=== PATIENT | male | born 1945 | race African-American/Black ===

== ENCOUNTER 2020-02-21 10:30 | Inpatient (IN) | payer MEDICARE, MEDICAID ==
[~2020-02-21] VITALS: Ht 180.3 cm; Wt 117.9 kg
[~2020-02-21 10:30] MED LIST: ALBUTEROL
[2020-02-21 11:41] LABS: CHLORIDE 104 mEq/L (98-107)
[2020-02-21 11:42] LABS: HEMATOCRIT. 38.8 % (42.0-52.0); HEMOGLOBIN. 12.5 g/dL (14.0-18.0); MEAN CORPUSCULAR HEMOGLOBIN 27.3 pg (28.0-32.0); MEAN CORPUSCULAR VOLUME 85.2 fL (80.0-94.0); MEAN PLATELET VOLUME 10.2 fl (7.4-10.4); PLATELET 103 x1000/uL (130-400); RED BLOOD CELL COUNT 4.56 mill/uL (4.7-6.1); RED CELL DISTRIBUTION WIDTH 19.3 % (11.6-14.6)
[2020-02-21 11:45] LABS: PROTHROMBIN TIME 10.9 sec (9.6-11.0)
[2020-02-21 12:01] LABS: CLARITY URINE CLEAR (CLEAR); COLOR URINE YELLOW (YELLOW); KETONES URINE TRACE (NEGATIVE); LEUKOCYTE ESTERASE URINE NEGATIVE (NEGATIVE); NITRITE URINE NEGATIVE (NEGATIVE); OCCULT BLOOD URINE 2+ (NEGATIVE); PROTEIN URINE 2+ (NEGATIVE); SPECIFIC GRAVITY URINE 1.022 (1.005-1.030); UROBILINOGEN URINE 0.2 E.U./dL (0.2-1.0)
[2020-02-21 12:18] LABS: PLATELET ESTIMATE DECREASED
[2020-02-21] MEDS ORDERED: CEFTRIAXONE 1 G PREMIX 50 ML IV ONE (13:15)
[2020-02-21] MEDS ORDERED: AZITHROMYCIN 500 MG in DEXT 5% WATER 250 ML IV ONE (13:15)
[2020-02-21] MEDS ORDERED: TRAMADOL 50MG TABLET PO ONE (13:30)
[2020-02-21] MEDS ORDERED: ALBUTEROL 6.7GM HFA INHALER ORI PRN (16:00)
[2020-02-21] MEDS ORDERED: ACETAMINOPHEN 650MG/20.3ML UDC GT PRN ×2 (16:00)
[2020-02-21] MEDS ORDERED: CLONIDINE 0.1MG TABLET PO PRN (16:00)
[2020-02-21] MEDS ORDERED: HYDROCODONE/ACETAMINOPHEN 5/325MG TABLET PO PRN (16:00)
[2020-02-21] MEDS ORDERED: ACETAMINOPHEN 650MG SUPP PR PRN ×2 (16:00)
[2020-02-21] MEDS ORDERED: DOCUSATE SODIUM 100MG CAPSULE PO PRN (16:00)
[2020-02-21] MEDS ORDERED: ONDANSETRON HCL 4MG/2ML INJ IV PRN (16:00)
[2020-02-21] MEDS ORDERED: DEXTROSE 50% WATER 50ML SYRINGE IV PRN (16:00)
[2020-02-21] MEDS ORDERED: NA PHOS,M-B/NA PHOS,DI-BA ENEMA 118ML PR PRN (16:00)
[2020-02-21] MEDS ORDERED: MAGNESIUM/ALUMINUM HYDROXIDE/SIMETHICONE 30ML UDC PO PRN (16:00)
[2020-02-21] MEDS: SODIUM CHLORIDE 0.9% 1,000 ML IV SCH (16:47)
[2020-02-21] MEDS: BLOOD SUGAR DIAGNOSTIC STRIP TEST SCH ×2 (17:00→23:41)
[2020-02-21] MEDS: ENOXAPARIN 30MG/0.3ML SYR SUBCUT SCH (18:00)
[2020-02-21] MEDS: INSULIN LISPRO 100 UNITS/ML SUBCUT SCH ×2 (18:28→23:20)
[2020-02-21 23:53] LABS: CREATINE KINASE MB FRACTION 2.7 ng/mL (0.5-3.6)
[2020-02-22 04:57] LABS: CHLORIDE 106 mEq/L (98-107)
[2020-02-22 05:04] LABS: LDL CHOLESTEROL 87 mg/dL (5-100)
[2020-02-22 05:05] LABS: HDL CHOLESTEROL 73 mg/dL (40-59)
[2020-02-22 05:09] LABS: CREATINE KINASE MB FRACTION 2.9 ng/mL (0.5-3.6)
[2020-02-22 05:12] LABS: BASOPHILS % 0.2 % (0.0-2.0); EOSINOPHILS % 0.1 % (0.0-5.0); HEMATOCRIT. 40.2 % (42.0-52.0); MEAN CORPUSCULAR HEMOGLOBIN 27.4 pg (28.0-32.0); MEAN CORPUSCULAR VOLUME 84.7 fL (80.0-94.0); MEAN PLATELET VOLUME 10.7 fl (7.4-10.4); MONOCYTES % 9.4 % (2.0-8.0); NEUTROPHILS % 80.3 % (40.0-76.0); PLATELET 108 x1000/uL (130-400); RED BLOOD CELL COUNT 4.75 mill/uL (4.7-6.1); RED CELL DISTRIBUTION WIDTH 19.2 % (11.6-14.6)
[2020-02-22 05:27] LABS: CREATINE KINASE 4733 IU/L (39-308)
[2020-02-22] MEDS: ENOXAPARIN 30MG/0.3ML SYR SUBCUT SCH ×2 (06:00→18:18)
[2020-02-22] MEDS: BLOOD SUGAR DIAGNOSTIC STRIP TEST SCH ×4 (08:11→21:00)
[2020-02-22] MEDS: INSULIN LISPRO 100 UNITS/ML SUBCUT SCH ×3 (08:14→17:00)
[2020-02-22] MEDS: SODIUM CHLORIDE 0.9% 1,000 ML IV SCH (08:37)
[2020-02-22] MEDS ORDERED: AZITHROMYCIN 500 MG in DEXT 5% WATER 250 ML IV SCH (14:00)
[2020-02-22] MEDS ORDERED: CEFTRIAXONE 1 G PREMIX 50 ML IV SCH (14:00)
[2020-02-23] VITALS (7 sets, daily range): BP systolic 101–136; BP diastolic 59–75
[2020-02-23] MEDS: SODIUM CHLORIDE 0.9% 1,000 ML IV SCH ×2 (00:56→17:13)
[2020-02-23] MEDS: INSULIN LISPRO 100 UNITS/ML SUBCUT SCH ×5 (00:57→23:38)
[2020-02-23 06:11] LABS: BASOPHILS % 0.4 % (0.0-2.0); EOSINOPHILS % 0.3 % (0.0-5.0); HEMATOCRIT. 35.2 % (42.0-52.0); HEMOGLOBIN. 11.5 g/dL (14.0-18.0); LYMPHOCYTES % 11.4 % (20.0-50.0); MEAN CORPUSCULAR HEMOGLOBIN 27.5 pg (28.0-32.0); MEAN CORPUSCULAR VOLUME 84.1 fL (80.0-94.0); MEAN PLATELET VOLUME 10.4 fl (7.4-10.4); MONOCYTES % 8.9 % (2.0-8.0); PLATELET 120 x1000/uL (130-400); RED BLOOD CELL COUNT 4.18 mill/uL (4.7-6.1); RED CELL DISTRIBUTION WIDTH 19.6 % (11.6-14.6)
[2020-02-23 06:14] LABS: CHLORIDE 111 mEq/L (98-107)
[2020-02-23 06:25] LABS: PHOSPHORUS 2.6 mg/dL (2.5-4.9)
[2020-02-23] MEDS: BLOOD SUGAR DIAGNOSTIC STRIP TEST SCH ×4 (07:30→21:00)
[2020-02-23] MEDS ORDERED: DIGOXIN 500MCG/2ML AMP IV SCH (09:00)
[2020-02-23] MEDS: METOPROLOL TARTRATE 25MG TABLET PO SCH ×2 (09:14→23:36)
[2020-02-23] MEDS: CEFTRIAXONE 1,000 MG in DEXTROSE 5% WATER 50 ML IV SCH (12:53)
[2020-02-23] MEDS: ENOXAPARIN 120MG/0.8ML SYR SUBCUT SCH ×2 (13:45→23:37)
[2020-02-23] MEDS ORDERED: AZITHROMYCIN 500 MG in DEXT 5% WATER 250 ML IV SCH (14:00)
[2020-02-23 16:42] LABS: T4 FREE 1.35 ng/dL (0.76-1.46)
[2020-02-23] MEDS: ACETAMINOPHEN 325MG TABLET PO PRN ×2 (17:30→23:38)
[2020-02-24] VITALS: BP 132/76
[2020-02-24 00:37] LABS: CREATINE KINASE MB FRACTION 1.5 ng/mL (0.5-3.6)
[2020-02-24 04:00] VITALS: BP 130/74
[2020-02-24] MEDS: BLOOD SUGAR DIAGNOSTIC STRIP TEST SCH ×4 (07:29→21:43)
[2020-02-24 07:37] LABS: CREATINE KINASE MB FRACTION 1.8 ng/mL (0.5-3.6)
[2020-02-24 08:00] VITALS: BP 124/75
[2020-02-24] MEDS: ENOXAPARIN 120MG/0.8ML SYR SUBCUT SCH ×2 (08:47→21:45)
[2020-02-24] MEDS: METOPROLOL TARTRATE 25MG TABLET PO SCH ×2 (08:47→21:46)
[2020-02-24] MEDS: AZITHROMYCIN 250 MG TABLET PO SCH (08:47)
[2020-02-24] MEDS: INSULIN LISPRO 100 UNITS/ML SUBCUT SCH ×4 (08:52→21:45)
[2020-02-24] MEDS: SODIUM CHLORIDE 0.9% 1,000 ML IV SCH (10:40)
[2020-02-24 12:00] VITALS: BP 127/71
[2020-02-24] MEDS ORDERED: DIATR MEGLU/DIATRIZOATE SOLN 30ML PO SCH (12:15)
[2020-02-24] MEDS: CEFTRIAXONE 1,000 MG in DEXTROSE 5% WATER 50 ML IV SCH (13:10)
[2020-02-24 16:00] VITALS: BP 130/79
[2020-02-24 20:00] VITALS: BP 132/75
[2020-02-24 21:25] LABS: BASOPHILS % 0.3 % (0.0-2.0); HEMATOCRIT. 32.8 % (42.0-52.0); HEMOGLOBIN. 10.8 g/dL (14.0-18.0); LYMPHOCYTES % 17.6 % (20.0-50.0); MEAN CORPUSCULAR HEMOGLOBIN 27.5 pg (28.0-32.0); MEAN CORPUSCULAR VOLUME 83.8 fL (80.0-94.0); MEAN PLATELET VOLUME 9.8 fl (7.4-10.4); MONOCYTES % 10.8 % (2.0-8.0); NEUTROPHILS % 70.3 % (40.0-76.0); PLATELET 158 x1000/uL (130-400); RED BLOOD CELL COUNT 3.92 mill/uL (4.7-6.1)
[2020-02-24 21:27] LABS: CHLORIDE 102 mEq/L (98-107)
[2020-02-25] VITALS: BP 133/67
[2020-02-25 04:00] VITALS: BP 130/75
[2020-02-25] MEDS: INSULIN LISPRO 100 UNITS/ML SUBCUT SCH ×4 (07:10→21:51)
[2020-02-25] MEDS: BLOOD SUGAR DIAGNOSTIC STRIP TEST SCH ×4 (07:26→21:53)
[2020-02-25 08:00] VITALS: BP 118/69
[2020-02-25] MEDS: METOPROLOL TARTRATE 25MG TABLET PO SCH ×3 (09:27→21:53)
[2020-02-25] MEDS: ENOXAPARIN 120MG/0.8ML SYR SUBCUT SCH ×2 (09:27→21:53)
[2020-02-25] MEDS: AZITHROMYCIN 250 MG TABLET PO SCH (09:27)
[2020-02-25 12:00] VITALS: BP 112/64
[2020-02-25] MEDS: CEFTRIAXONE 1,000 MG in DEXTROSE 5% WATER 50 ML IV SCH (13:59)
[2020-02-25 16:00] VITALS: BP 140/69
[2020-02-25 20:00] VITALS: BP 97/60
[2020-02-25 21:09] LABS: BASOPHILS % 0.6 % (0.0-2.0); EOSINOPHILS % 1.2 % (0.0-5.0); HEMATOCRIT. 31.1 % (42.0-52.0); HEMOGLOBIN. 10.2 g/dL (14.0-18.0); LYMPHOCYTES % 17.5 % (20.0-50.0); MEAN CORPUSCULAR HEMOGLOBIN 27.5 pg (28.0-32.0); MEAN PLATELET VOLUME 9.8 fl (7.4-10.4); MONOCYTES % 9.1 % (2.0-8.0); NEUTROPHILS % 71.6 % (40.0-76.0); PLATELET 184 x1000/uL (130-400)
[2020-02-25 21:21] LABS: CHLORIDE 101 mEq/L (98-107)
[2020-02-25] MEDS: SODIUM CHLORIDE 0.9% 1,000 ML IV SCH (21:50)
[2020-02-25] MEDS: ACETAMINOPHEN 325MG TABLET PO PRN (21:54)
[2020-02-26] VITALS: BP 132/78
[2020-02-26 04:00] VITALS: BP 95/71
[2020-02-26] MEDS: METOPROLOL TARTRATE 25MG TABLET PO SCH ×3 (06:00→21:31)
[2020-02-26] MEDS: ACETAMINOPHEN 325MG TABLET PO PRN ×2 (06:12→14:39)
[2020-02-26] MEDS: BLOOD SUGAR DIAGNOSTIC STRIP TEST SCH ×4 (06:23→21:20)
[2020-02-26 06:53] LABS: BASOPHILS % 0.4 % (0.0-2.0); EOSINOPHILS % 1.8 % (0.0-5.0); HEMATOCRIT. 30.7 % (42.0-52.0); MEAN CORPUSCULAR HEMOGLOBIN 27.2 pg (28.0-32.0); MEAN CORPUSCULAR VOLUME 83.1 fL (80.0-94.0); MEAN PLATELET VOLUME 9.5 fl (7.4-10.4); MONOCYTES % 12.6 % (2.0-8.0); NEUTROPHILS % 67.2 % (40.0-76.0); PLATELET 202 x1000/uL (130-400); RED BLOOD CELL COUNT 3.69 mill/uL (4.7-6.1); RED CELL DISTRIBUTION WIDTH 18.8 % (11.6-14.6)
[2020-02-26 07:01] LABS: CHLORIDE 103 mEq/L (98-107)
[2020-02-26 07:07] LABS: PHOSPHORUS 2.3 mg/dL (2.5-4.9)
[2020-02-26] MEDS: INSULIN LISPRO 100 UNITS/ML SUBCUT SCH ×4 (07:10→21:26)
[2020-02-26] MEDS: ENOXAPARIN 120MG/0.8ML SYR SUBCUT SCH ×2 (09:15→21:25)
[2020-02-26 09:20] LABS: CLARITY URINE CLOUDY (CLEAR); COLOR URINE YELLOW (YELLOW); KETONES URINE NEGATIVE (NEGATIVE); LEUKOCYTE ESTERASE URINE NEGATIVE (NEGATIVE); NITRITE URINE NEGATIVE (NEGATIVE); OCCULT BLOOD URINE 1+ (NEGATIVE); PH URINE 5.5 (4.5-8.0); PROTEIN URINE 2+ (NEGATIVE); SPECIFIC GRAVITY URINE 1.017 (1.005-1.030); UROBILINOGEN URINE 0.2 E.U./dL (0.2-1.0)
[2020-02-26 12:00] VITALS: BP 136/62
[2020-02-26] MEDS: SODIUM CHLORIDE 0.9% 1,000 ML IV SCH (12:51)
[2020-02-26] MEDS: CEFTRIAXONE 1,000 MG in DEXTROSE 5% WATER 50 ML IV SCH (14:34)
[2020-02-26 16:00] VITALS: BP 137/71
[2020-02-26 20:00] VITALS: BP 134/71
[2020-02-27] VITALS: BP 133/76
[2020-02-27 04:00] VITALS: BP 139/69
[2020-02-27] MEDS: SODIUM CHLORIDE 0.9% 1,000 ML IV SCH ×2 (04:48→21:39)
[2020-02-27 06:07] LABS: EOSINOPHILS % 0.7 % (0.0-5.0); HEMOGLOBIN. 9.7 g/dL (14.0-18.0); LYMPHOCYTES % 12.4 % (20.0-50.0); MEAN CORPUSCULAR HEMOGLOBIN 27.4 pg (28.0-32.0); MEAN CORPUSCULAR VOLUME 84.7 fL (80.0-94.0); MEAN PLATELET VOLUME 9.5 fl (7.4-10.4); MONOCYTES % 10.9 % (2.0-8.0); PLATELET 244 x1000/uL (130-400); RED BLOOD CELL COUNT 3.54 mill/uL (4.7-6.1); RED CELL DISTRIBUTION WIDTH 18.1 % (11.6-14.6)
[2020-02-27 06:18] LABS: CHLORIDE 105 mEq/L (98-107)
[2020-02-27] MEDS: BLOOD SUGAR DIAGNOSTIC STRIP TEST SCH ×4 (06:26→21:34)
[2020-02-27 06:28] LABS: PHOSPHORUS 2.3 mg/dL (2.5-4.9)
[2020-02-27] MEDS: INSULIN LISPRO 100 UNITS/ML SUBCUT SCH ×5 (06:44→21:00)
[2020-02-27] MEDS: METOPROLOL TARTRATE 25MG TABLET PO SCH ×4 (06:45→21:35)
[2020-02-27 08:00] VITALS: BP 130/68
[2020-02-27] MEDS: ENOXAPARIN 120MG/0.8ML SYR SUBCUT SCH ×2 (08:12→21:38)
[2020-02-27 12:00] VITALS: BP 124/73
[2020-02-27 16:00] VITALS: BP 149/60
[2020-02-27 20:00] VITALS: BP 117/81
[2020-02-28] VITALS: BP 129/82
[2020-02-28] MEDS: ACETAMINOPHEN 325MG TABLET PO PRN ×2 (01:14→10:34)
[2020-02-28 04:00] VITALS: BP 143/68
[2020-02-28] MEDS: METOPROLOL TARTRATE 25MG TABLET PO SCH ×3 (06:02→21:57)
[2020-02-28] MEDS: BLOOD SUGAR DIAGNOSTIC STRIP TEST SCH ×4 (06:27→21:57)
[2020-02-28 07:33] LABS: BASOPHILS % 0.6 % (0.0-2.0); EOSINOPHILS % 1.4 % (0.0-5.0); HEMATOCRIT. 28.3 % (42.0-52.0); HEMOGLOBIN. 9.2 g/dL (14.0-18.0); LYMPHOCYTES % 12.4 % (20.0-50.0); MEAN CORPUSCULAR HEMOGLOBIN 27.7 pg (28.0-32.0); MEAN CORPUSCULAR VOLUME 84.5 fL (80.0-94.0); MEAN PLATELET VOLUME 8.8 fl (7.4-10.4); MONOCYTES % 10.4 % (2.0-8.0); NEUTROPHILS % 75.2 % (40.0-76.0); PLATELET 261 x1000/uL (130-400); RED BLOOD CELL COUNT 3.34 mill/uL (4.7-6.1); RED CELL DISTRIBUTION WIDTH 18.8 % (11.6-14.6)
[2020-02-28 08:00] VITALS: BP 164/81
[2020-02-28 08:10] LABS: CHLORIDE 105 mEq/L (98-107)
[2020-02-28 08:15] LABS: PHOSPHORUS 1.7 mg/dL (2.5-4.9)
[2020-02-28] MEDS: ENOXAPARIN 120MG/0.8ML SYR SUBCUT SCH ×2 (08:21→21:56)
[2020-02-28] MEDS: INSULIN LISPRO 100 UNITS/ML SUBCUT SCH ×4 (08:21→21:00)
[2020-02-28 12:00] VITALS: BP 117/64
[2020-02-28] MEDS ORDERED: POTASSIUM PHOS,M-BASIC-D-BASIC 30 MMOL in SODIUM CHLORIDE 0.9% 500 ML IV NR (14:00)
[2020-02-28 16:00] VITALS: BP 143/68
[2020-02-28 20:00] VITALS: BP 153/77
[2020-02-29] VITALS: BP 136/76
[2020-02-29] MEDS: ACETAMINOPHEN 325MG TABLET PO PRN ×3 (02:50→21:16)
[2020-02-29 04:00] VITALS: BP 122/68
[2020-02-29] MEDS: METOPROLOL TARTRATE 25MG TABLET PO SCH ×3 (05:12→21:20)
[2020-02-29] MEDS: INSULIN LISPRO 100 UNITS/ML SUBCUT SCH ×4 (06:13→21:17)
[2020-02-29] MEDS: BLOOD SUGAR DIAGNOSTIC STRIP TEST SCH ×4 (06:13→21:16)
[2020-02-29 08:00] VITALS: BP 117/69
[2020-02-29 08:19] LABS: BASOPHILS % 0.5 % (0.0-2.0); EOSINOPHILS % 1.5 % (0.0-5.0); HEMATOCRIT. 24.7 % (42.0-52.0); HEMOGLOBIN. 8.2 g/dL (14.0-18.0); LYMPHOCYTES % 11.5 % (20.0-50.0); MEAN CORPUSCULAR VOLUME 84.4 fL (80.0-94.0); MEAN PLATELET VOLUME 8.6 fl (7.4-10.4); MONOCYTES % 9.6 % (2.0-8.0); NEUTROPHILS % 76.9 % (40.0-76.0); PLATELET 277 x1000/uL (130-400); RED BLOOD CELL COUNT 2.93 mill/uL (4.7-6.1); RED CELL DISTRIBUTION WIDTH 18.4 % (11.6-14.6)
[2020-02-29 08:30] LABS: CHLORIDE 105 mEq/L (98-107)
[2020-02-29 08:38] LABS: PHOSPHORUS 1.7 mg/dL (2.5-4.9)
[2020-02-29] MEDS: FUROSEMIDE 20MG/2ML VIAL IVP SCH (08:44)
[2020-02-29] MEDS: ENOXAPARIN 120MG/0.8ML SYR SUBCUT SCH ×2 (08:44→21:17)
[2020-02-29 12:00] VITALS: BP 109/67
[2020-02-29] MEDS ORDERED: POTASSIUM PHOS,M-BASIC-D-BASIC 30 MMOL in SODIUM CHLORIDE 0.9% 500 ML IV NR (13:00)
[2020-02-29 16:00] VITALS: BP 123/64
[2020-02-29] MEDS: DEXAMETHASONE 4MG TABLET PO SCH (16:49)
[2020-02-29 20:00] VITALS: BP 135/66
[2020-02-29] MEDS: GUAIFENESIN 200MG/10ML SUGAR FREE UDC PO PRN (21:17)
[2020-03-01] VITALS: BP 127/70
[2020-03-01 04:00] VITALS: BP 132/67
[2020-03-01] MEDS: METOPROLOL TARTRATE 25MG TABLET PO SCH ×3 (05:03→22:46)
[2020-03-01] MEDS: INSULIN LISPRO 100 UNITS/ML SUBCUT SCH ×4 (06:00→22:47)
[2020-03-01] MEDS: BLOOD SUGAR DIAGNOSTIC STRIP TEST SCH ×4 (06:00→21:18)
[2020-03-01 07:50] LABS: HEMATOCRIT. 26.1 % (42.0-52.0); HEMOGLOBIN. 8.7 g/dL (14.0-18.0); MEAN CORPUSCULAR HEMOGLOBIN 28.3 pg (28.0-32.0); MEAN PLATELET VOLUME 8.9 fl (7.4-10.4); PLATELET 340 x1000/uL (130-400); RED BLOOD CELL COUNT 3.06 mill/uL (4.7-6.1); RED CELL DISTRIBUTION WIDTH 18.3 % (11.6-14.6)
[2020-03-01 08:00] VITALS: BP 128/68
[2020-03-01 08:23] LABS: CHLORIDE 105 mEq/L (98-107)
[2020-03-01 08:27] LABS: PHOSPHORUS 2.5 mg/dL (2.5-4.9)
[2020-03-01 10:10] LABS: PLATELET ESTIMATE NORMAL
[2020-03-01] MEDS: ENOXAPARIN 120MG/0.8ML SYR SUBCUT SCH ×2 (10:15→22:46)
[2020-03-01] MEDS: DEXAMETHASONE 4MG TABLET PO SCH (10:16)
[2020-03-01] MEDS: FUROSEMIDE 20MG/2ML VIAL IVP SCH (10:16)
[2020-03-01 12:00] VITALS: BP 124/71
[2020-03-01 16:00] VITALS: BP 118/69
[2020-03-01 20:00] VITALS: BP 130/71
[2020-03-02] VITALS: BP 132/64
[2020-03-02 04:00] VITALS: BP_SYST 102; BP_SYST 144; BP_DIAS 70; BP_DIAS 91
[2020-03-02] MEDS: METOPROLOL TARTRATE 25MG TABLET PO SCH ×3 (06:15→22:50)
[2020-03-02] MEDS: BLOOD SUGAR DIAGNOSTIC STRIP TEST SCH ×4 (06:15→21:00)
[2020-03-02 08:00] VITALS: BP 138/76
[2020-03-02 08:27] LABS: HEMATOCRIT. 27.4 % (42.0-52.0); HEMOGLOBIN. 8.8 g/dL (14.0-18.0); MEAN CORPUSCULAR HEMOGLOBIN 27.2 pg (28.0-32.0); MEAN PLATELET VOLUME 8.9 fl (7.4-10.4); PLATELET 418 x1000/uL (130-400); RED BLOOD CELL COUNT 3.23 mill/uL (4.7-6.1); RED CELL DISTRIBUTION WIDTH 18.1 % (11.6-14.6)
[2020-03-02] MEDS: FUROSEMIDE 20MG/2ML VIAL IVP SCH (08:53)
[2020-03-02] MEDS: ENOXAPARIN 120MG/0.8ML SYR SUBCUT SCH ×2 (08:53→22:50)
[2020-03-02] MEDS: DEXAMETHASONE 4MG TABLET PO SCH (08:53)
[2020-03-02] MEDS: INSULIN LISPRO 100 UNITS/ML SUBCUT SCH ×4 (08:54→22:52)
[2020-03-02 09:11] LABS: CHLORIDE 101 mEq/L (98-107)
[2020-03-02 09:20] LABS: PHOSPHORUS 1.9 mg/dL (2.5-4.9)
[2020-03-02 12:00] VITALS: BP 141/66
[2020-03-02 14:30] LABS: PLATELET ESTIMATE SLIGHTLY INCREASED
[2020-03-02] MEDS ORDERED: SODIUM PHOS,M-BASIC-D-BASIC 30 MM in DEXT 5% WATER 500 ML IV SCH (15:00)
[2020-03-02] MEDS: GUAIFENESIN 200MG/10ML SUGAR FREE UDC PO PRN (15:41)
[2020-03-02] MEDS: ACETAMINOPHEN 325MG TABLET PO PRN (15:41)
[2020-03-02 16:00] VITALS: BP 148/67
[2020-03-02] MEDS ORDERED: DEXTROSE 50% WATER 50ML SYRINGE IV PRN (19:00)
[2020-03-02 20:00] VITALS: BP 125/57
[2020-03-03 00:43] VITALS: BP 129/48
[2020-03-03 04:00] VITALS: BP 137/67
[2020-03-03] MEDS: METOPROLOL TARTRATE 25MG TABLET PO SCH ×3 (06:24→22:13)
[2020-03-03] MEDS: BLOOD SUGAR DIAGNOSTIC STRIP TEST SCH ×4 (06:24→22:13)
[2020-03-03 07:31] LABS: HEMATOCRIT. 27.3 % (42.0-52.0); HEMOGLOBIN. 8.7 g/dL (14.0-18.0); MEAN CORPUSCULAR HEMOGLOBIN 26.9 pg (28.0-32.0); MEAN CORPUSCULAR VOLUME 84.1 fL (80.0-94.0); PLATELET 400 x1000/uL (130-400); RED BLOOD CELL COUNT 3.24 mill/uL (4.7-6.1)
[2020-03-03 07:59] LABS: CHLORIDE 102 mEq/L (98-107)
[2020-03-03 08:00] VITALS: BP_SYST 103; BP_SYST 116; BP_DIAS 67; BP_DIAS 74
[2020-03-03 08:05] LABS: PHOSPHORUS 2.2 mg/dL (2.5-4.9)
[2020-03-03] MEDS: GUAIFENESIN 200MG/10ML SUGAR FREE UDC PO PRN (08:23)
[2020-03-03] MEDS: FUROSEMIDE 20MG/2ML VIAL IVP SCH (08:23)
[2020-03-03] MEDS: ENOXAPARIN 120MG/0.8ML SYR SUBCUT SCH ×2 (08:23→22:13)
[2020-03-03] MEDS: DEXAMETHASONE 4MG TABLET PO SCH (08:23)
[2020-03-03] MEDS: INSULIN LISPRO 100 UNITS/ML SUBCUT SCH ×4 (08:25→22:14)
[2020-03-03] MEDS: ACETAMINOPHEN 325MG TABLET PO PRN ×2 (08:26→23:21)
[2020-03-03] MEDS: INSULIN GLARGINE UD 100 UNITS/ML SYR SUBCUT SCH (10:41)
[2020-03-03 12:00] VITALS: BP 83/43
[2020-03-03 12:00] LABS: PLATELET ESTIMATE NORMAL
[2020-03-03] MEDS ORDERED: SODIUM PHOS,M-BASIC-D-BASIC 20 MM in DEXT 5% WATER 243.3333 ML IV SCH (12:00)
[2020-03-03] MEDS ORDERED: HALOPERIDOL LACTATE 5MG/ML VIAL IM NR (12:45)
[2020-03-03 13:39] LABS: BG BASE EXCESS 3.9 mmol/L (-2.0-2.0); BG CARBOXYHEMOGLOBIN 0.3 % (0.5-1.5); BG DEOXYHEMOGLOBIN 0.8 % (0.0-5.0); BG FRACTION INSPIRED OXYGEN 100; BG HCO3 ACT 27.7 mmol/L (22.0-26.0); BG METHEMOGLOBIN 0.3 % (0.0-1.5); BG OXYGEN SATURATION 99.2 % (92.0-98.5); BG OXYHEMOGLOBIN 98.6 % (94.0-97.0); BG PCO2 38.1 mmHg (35.0-45.0); BG PH 7.479 (7.350-7.450); BG PO2 170.8 mmHg (75.0-100.0); BG SAMPLE SITE LEFT RADIAL; BG TOTAL HEMOGLOBIN 8.9 g/dL (12.0-18.0); BG VENT MODE MASK - NRB
[2020-03-03 16:00] VITALS: BP 121/63
[2020-03-03 20:00] VITALS: BP 130/71
[2020-03-04] VITALS: BP 142/77
[2020-03-04 04:00] VITALS: BP 109/52
[2020-03-04] MEDS: METOPROLOL TARTRATE 25MG TABLET PO SCH ×3 (05:30→21:00)
[2020-03-04] MEDS: BLOOD SUGAR DIAGNOSTIC STRIP TEST SCH ×4 (06:07→21:00)
[2020-03-04] MEDS: INSULIN LISPRO 100 UNITS/ML SUBCUT SCH ×4 (06:10→21:02)
[2020-03-04 08:00] VITALS: BP 105/69
[2020-03-04] MEDS: DEXAMETHASONE 4MG TABLET PO SCH (08:23)
[2020-03-04] MEDS: ENOXAPARIN 120MG/0.8ML SYR SUBCUT SCH ×2 (08:23→21:00)
[2020-03-04] MEDS: FUROSEMIDE 20MG/2ML VIAL IVP SCH (08:23)
[2020-03-04 09:43] LABS: BASOPHILS % 0.6 % (0.0-2.0); EOSINOPHILS % 0.4 % (0.0-5.0); HEMATOCRIT. 30.4 % (42.0-52.0); HEMOGLOBIN. 9.8 g/dL (14.0-18.0); LYMPHOCYTES % 11.9 % (20.0-50.0); MEAN CORPUSCULAR HEMOGLOBIN 27.3 pg (28.0-32.0); MEAN CORPUSCULAR VOLUME 84.3 fL (80.0-94.0); MEAN PLATELET VOLUME 8.6 fl (7.4-10.4); NEUTROPHILS % 77.1 % (40.0-76.0); PLATELET 466 x1000/uL (130-400); RED CELL DISTRIBUTION WIDTH 18.3 % (11.6-14.6)
[2020-03-04 10:00] LABS: CHLORIDE 102 mEq/L (98-107)
[2020-03-04] MEDS: INSULIN GLARGINE UD 100 UNITS/ML SYR SUBCUT SCH (10:01)
[2020-03-04 10:08] LABS: PHOSPHORUS 2.6 mg/dL (2.5-4.9)
[2020-03-04 12:00] VITALS: BP 158/89
[2020-03-04] MEDS ORDERED: METO25TA6 PO (13:07)
[2020-03-04] MEDS ORDERED: DEX4 PO (13:07)
[2020-03-04] MEDS ORDERED: INSLIS SUBCUT (13:07)
[2020-03-04] MEDS ORDERED: ALBU6.7H9 ORI (13:07)
[2020-03-04] MEDS ORDERED: TOPUD PO (13:07)
[2020-03-04] MEDS ORDERED: LANTUSUD SUBCUT (13:07)
[2020-03-04 16:00] VITALS: BP 129/81
[2020-03-04] MEDS ORDERED: HALOPERIDOL LACTATE 5MG/ML VIAL IM NR (16:52)
[2020-03-04 20:00] VITALS: BP 91/58
[2020-03-05] VITALS: BP 109/62
[2020-03-05 04:00] VITALS: BP 138/78
[2020-03-05] MEDS: METOPROLOL TARTRATE 25MG TABLET PO SCH ×3 (05:37→22:14)
[2020-03-05] MEDS: BLOOD SUGAR DIAGNOSTIC STRIP TEST SCH ×4 (06:22→21:25)
[2020-03-05] MEDS: INSULIN LISPRO 100 UNITS/ML SUBCUT SCH ×4 (07:10→22:18)
[2020-03-05 08:00] VITALS: BP 128/62
[2020-03-05] MEDS: FUROSEMIDE 20MG/2ML VIAL IVP SCH (09:00)
[2020-03-05] MEDS: ENOXAPARIN 120MG/0.8ML SYR SUBCUT SCH ×2 (09:33→22:14)
[2020-03-05] MEDS: DEXAMETHASONE 4MG TABLET PO SCH (09:34)
[2020-03-05] MEDS: INSULIN GLARGINE UD 100 UNITS/ML SYR SUBCUT SCH (11:25)
[2020-03-05 12:00] VITALS: BP 148/81
[2020-03-05] MEDS ORDERED: IOHEXOL-300 100 ML BOTTLE ONE (15:21)
[2020-03-05 16:00] VITALS: BP 136/62
[2020-03-05 20:00] VITALS: BP 146/82
[2020-03-05] MEDS: HALOPERIDOL 5MG TABLET PO PRN (21:27)
[2020-03-05] MEDS: ACETAMINOPHEN 325MG TABLET PO PRN (22:29)
[2020-03-06] VITALS (7 sets, daily range): BP systolic 104–151; BP diastolic 50–83
[2020-03-06] MEDS: METOPROLOL TARTRATE 25MG TABLET PO SCH ×3 (06:26→21:22)
[2020-03-06] MEDS: BLOOD SUGAR DIAGNOSTIC STRIP TEST SCH ×4 (06:26→21:22)
[2020-03-06] MEDS: INSULIN LISPRO 100 UNITS/ML SUBCUT SCH ×4 (07:10→21:21)
[2020-03-06] MEDS: FUROSEMIDE 20MG/2ML VIAL IVP SCH (09:27)
[2020-03-06] MEDS: HALOPERIDOL 5MG TABLET PO PRN (09:27)
[2020-03-06] MEDS: ENOXAPARIN 120MG/0.8ML SYR SUBCUT SCH ×2 (09:27→21:22)
[2020-03-06] MEDS: INSULIN GLARGINE UD 100 UNITS/ML SYR SUBCUT SCH (09:29)
[2020-03-06 20:04] LABS: BASOPHILS % 0.6 % (0.0-2.0); EOSINOPHILS % 0.7 % (0.0-5.0); HEMATOCRIT. 29.3 % (42.0-52.0); HEMOGLOBIN. 9.5 g/dL (14.0-18.0); LYMPHOCYTES % 18.5 % (20.0-50.0); MEAN CORPUSCULAR HEMOGLOBIN 27.4 pg (28.0-32.0); MEAN CORPUSCULAR VOLUME 84.9 fL (80.0-94.0); MEAN PLATELET VOLUME 8.7 fl (7.4-10.4); NEUTROPHILS % 68.2 % (40.0-76.0); PLATELET 421 x1000/uL (130-400); RED BLOOD CELL COUNT 3.45 mill/uL (4.7-6.1); RED CELL DISTRIBUTION WIDTH 18.4 % (11.6-14.6)
[2020-03-06 20:11] LABS: CHLORIDE 104 mEq/L (98-107)
[2020-03-07 00:41] VITALS: BP 149/73
[2020-03-07 04:00] VITALS: BP 104/83
[2020-03-07] MEDS: BLOOD SUGAR DIAGNOSTIC STRIP TEST SCH ×4 (05:52→20:54)
[2020-03-07] MEDS: INSULIN LISPRO 100 UNITS/ML SUBCUT SCH ×4 (05:52→20:53)
[2020-03-07] MEDS: METOPROLOL TARTRATE 25MG TABLET PO SCH ×3 (06:19→21:14)
[2020-03-07 08:00] VITALS: BP 160/80
[2020-03-07] MEDS: ENOXAPARIN 120MG/0.8ML SYR SUBCUT SCH ×2 (09:55→20:54)
[2020-03-07] MEDS: FUROSEMIDE 20MG/2ML VIAL IVP SCH (09:55)
[2020-03-07 12:00] VITALS: BP 132/66
[2020-03-07] MEDS: HALOPERIDOL 5MG TABLET PO PRN (12:06)
[2020-03-07] MEDS: INSULIN GLARGINE UD 100 UNITS/ML SYR SUBCUT SCH (12:08)
[2020-03-07 16:00] VITALS: BP 153/65
[2020-03-07] MEDS: ACETAMINOPHEN 325MG TABLET PO PRN (23:31)
[2020-03-08 00:05] VITALS: BP 130/70
[2020-03-08] MEDS: HALOPERIDOL 5MG TABLET PO PRN ×2 (00:40→20:48)
[2020-03-08] MEDS: DIPHENHYDRAMINE 25MG CAPSULE PO PRN ×2 (02:47→20:47)
[2020-03-08 04:00] VITALS: BP 142/78
[2020-03-08] MEDS: METOPROLOL TARTRATE 25MG TABLET PO SCH ×3 (06:35→20:48)
[2020-03-08] MEDS: BLOOD SUGAR DIAGNOSTIC STRIP TEST SCH ×4 (06:47→20:49)
[2020-03-08] MEDS: INSULIN LISPRO 100 UNITS/ML SUBCUT SCH ×5 (07:10→20:49)
[2020-03-08] MEDS: ENOXAPARIN 120MG/0.8ML SYR SUBCUT SCH ×2 (10:34→20:47)
[2020-03-08] MEDS: FUROSEMIDE 20MG/2ML VIAL IVP SCH (10:35)
[2020-03-08 12:00] VITALS: BP 122/54
[2020-03-08] MEDS: INSULIN GLARGINE UD 100 UNITS/ML SYR SUBCUT SCH (12:32)
[2020-03-08 16:00] VITALS: BP 132/63
[2020-03-08 20:00] VITALS: BP 132/108
[2020-03-09] VITALS: BP 115/67
[2020-03-09 04:00] VITALS: BP 110/62
[2020-03-09] MEDS: BLOOD SUGAR DIAGNOSTIC STRIP TEST SCH ×2 (05:50→12:17)
[2020-03-09] MEDS: METOPROLOL TARTRATE 25MG TABLET PO SCH (05:52)
[2020-03-09] MEDS: INSULIN LISPRO 100 UNITS/ML SUBCUT SCH ×2 (07:10→12:10)
[2020-03-09 08:00] VITALS: BP 119/68
[2020-03-09] MEDS: FUROSEMIDE 20MG/2ML VIAL IVP SCH (08:47)
[2020-03-09] MEDS: ENOXAPARIN 120MG/0.8ML SYR SUBCUT SCH (08:47)
[2020-03-09 12:00] VITALS: BP 129/65
[2020-03-09 13:34] VITALS: BP 132/65
[2020-03-09] MEDS ORDERED: INSULIN GLARGINE UD 100 UNITS/ML SYR SUBCUT SCH (14:00)
== END 2020-03-09 15:25 | DRG 871 ==
LOC: ER 10:58 → EDBEDREQ 12:06 → MICUSO 13:20 → EDBEDREQTM 13:29 → EDBEDREQ 13:29 → 7EST 02-22 21:44
PROVIDERS: ADMIT Family Medicine; ATTEND Family Medicine
DX: A41.89 Other specified sepsis (principal); U07.1 COVID-19; J12.89 Other viral pneumonia; J96.01 Acute respiratory failure with hypoxia; N17.9 Acute kidney failure, unspecified; I13.0 Hypertensive heart and chronic kidney disease with heart failure and stage 1 through stage 4 chronic kidney disease, or unspecified chronic kidney disease; J44.0 Chronic obstructive pulmonary disease with (acute) lower respiratory infection; G93.40 Encephalopathy, unspecified; I47.1 Supraventricular tachycardia; N18.9 Chronic kidney disease, unspecified; E11.51 Type 2 diabetes mellitus with diabetic peripheral angiopathy without gangrene; E11.22 Type 2 diabetes mellitus with diabetic chronic kidney disease; I48.91 Unspecified atrial fibrillation; E78.5 Hyperlipidemia, unspecified; E83.39 Other disorders of phosphorus metabolism; D64.9 Anemia, unspecified; I50.9 Heart failure, unspecified; G31.9 Degenerative disease of nervous system, unspecified; I25.10 Atherosclerotic heart disease of native coronary artery without angina pectoris; N28.89 Other specified disorders of kidney and ureter; D69.6 Thrombocytopenia, unspecified; Z86.73 Personal history of transient ischemic attack (TIA), and cerebral infarction without residual deficits; Z95.1 Presence of aortocoronary bypass graft
CPT/HCPCS: 36415; 36600; 71045; 72128; 72131; 72170; 74176; 74177; 76770; 80048; 80053; 80061; 81003; 82375; 82550; 82553; 82805; 82962; 83036; 83605; 83735; 83880; 84100; 84439; 84443; 84484; 85025; 87635; 93005; 96365; 99291; C1893; J0456; J0696; J1160; J1630; J1650; J1815; J1940; J3490; J7040; J7060; J8540; Q0163; Q9967; U0003